=== PATIENT | female | born 1950 | race Caucasian/White ===

== ENCOUNTER 2020-09-12 11:52 | Outpatient (CLI) | payer MEDICARE, SELFPAY ==
--- NOTE | ~2020-09-12 | XR_ITS ---
EXAMINATION: XR abdomen/kub 1V DATE: 09/12/2020 12:18 INDICATION: Left ureteral stone. TECHNIQUE: A supine view of the abdomen on 2 radiographs was obtained. COMPARISON: None. FINDINGS: There are no dilated loops of bowel. There are vascular calcifications in left pelvis. The kidneys are obscured by bowel. IMPRESSION: 1. No visible urolithiasis. Reviewed, dictated and finalized at location A. [employer] IMPRESSION: 1. No visible urolithiasis.
== END 2020-09-12 11:53 | disposition home or self-care (01) ==
PROVIDERS: Visit Provider Urology
DX: N20.1 Calculus of ureter (principal)
CPT/HCPCS: 74018

== ENCOUNTER 2021-03-16 10:14 | Outpatient (CLI) | payer MEDICARE, SELFPAY ==
--- NOTE | ~2021-03-16 | XR_ITS ---
EXAMINATION: XR abdomen/kub 1V INDICATION: Left ureteral stone TECHNIQUE: Supine views of the abdomen were obtained on 2 radiographs. COMPARISON: 09/12/2020 FINDINGS: No urolithiasis is identified. The bowel gas pattern is normal. There are vascular calcific ations in the left pelvis. IMPRESSION: 1. No urolithiasis identified. Reviewed, dictated and finalized at location A.
== END 2021-03-16 10:15 | disposition home or self-care (01) ==
PROVIDERS: Visit Provider Urology
DX: N20.1 Calculus of ureter (principal)
CPT/HCPCS: 74018

== ENCOUNTER 2021-04-30 12:30 | Outpatient (CLI) | payer MEDICARE, SELFPAY ==
--- NOTE | ~2021-04-30 | NM_ITS ---
EXAMINATION: CHRISTIANO trejo renal scan DATE: 04/30/2021 14:03 INDICATION: Bilateral hydronephrosis TECHNIQUE: 8 mCi Tc-99m MAG3 was administered IV. 40 mg furosemide was administered IV immediately a fterward. The patient was scanned in the supine position. A posterior abdominal radionuclide angiogra m was obtained. A subsequent time course of static images of the kidneys, ureters, and bladder was ob tained. COMPARISON: None FINDINGS: The posterior abdominal radionuclide angiogram and sequential static images show normal size, positio n, and morphology of the kidneys. Peak renal parenchymal uptake was 2.0 min in left kidney and 0.5 mi n in right kidney (normal peak 3-5 minutes). The relative early renal uptake was 47% on the left and 53% on the right (<40% is abnormal). No abnormalities of the ureters or bladder are seen. T1/2 for clearance of activity from the left kidney and proximal collecting system was 10.5 minutes. T1/2 for clearance of activity from the right kidney and proximal collecting system was 8.0 minutes. Notes on interpretation: T1/2 <10 minutes is normal, 10-15 minutes is low grade obstruction of questi onable clinical significance, 15-20 minutes is partial obstruction that is likely clinically signific ant, >20 minutes is high grade obstruction. Note that false positives may be seen with supine positio maco, dehydration, severely dilated nonobstructed kidney, atonic collecting system, poor renal functi on, and chronic furosemide use. IMPRESSION: 1. Symmetric kidney function. 2. Borderline delayed activity clearance from the left kidney but with no evident hydronephrosis on the scintigraphic images. 2. Normal activity clearance from the right kidney Reviewed, dictated and finalized at location A. IMPRESSION: 1. Symmetric kidney function. 2. Borderline delayed activity clearance from the left kidney but with no evid ent hydronephrosis on the scintigraphic images. 2. Normal activity clearance from the right kidney
== END 2021-04-30 12:31 | disposition home or self-care (01) ==
PROVIDERS: Visit Provider Urology
DX: N13.30 Unspecified hydronephrosis (principal)
CPT/HCPCS: 78708; A9562; J1940

== ENCOUNTER 2021-10-31 08:59 | Outpatient (CLI) | payer MEDICARE, SELFPAY ==
--- NOTE | ~2021-10-31 | XR_ITS ---
XR abdomen/kub 1V 10/31/2021 09:20 Indication: Bilateral hydronephrosis Procedure: KUB Comparison: 03/16/2021 Findings: Bowel gas pattern is nonobstructive. No renal stones are identified. Mild lumbar spondylosi s. No acute osseous abnormality. Impression: 1: No acute abdominal abnormality. Reviewed, dictated and finalized at location A. BOSS Impression: 1: No acute abdominal abnormality.
== END 2021-10-31 09:00 | disposition home or self-care (01) ==
PROVIDERS: Visit Provider Urology
DX: N13.30 Unspecified hydronephrosis (principal)
CPT/HCPCS: 74018

== ENCOUNTER 2021-12-12 01:47 | Day surgery (SDC) | payer MEDICARE, SELFPAY ==
[2021-11-29 13:37] VITALS: BMI 39.5
--- NOTE | 2021-12-11 17:03 | PM.HPGS ---
History of Present Illness History of Present Illness Consent: Risks, benefits, and alternatives have been discussed and questions answered. Patient agrees to proceed with procedure. Chief complaint: hx of colon polyps Narrative: Isa Marinelli is a 71 year old female with a history of polyps, Referred for colon cancer screening. 15 years ago she had removal of a villoglandular polyp. Review of Systems Review of Systems: All systems reviewed & are unremarkable except as noted in HPI and below PMFSH Social History Social History Living arrangements: with family Meds Home Medications and Allergies Home Medications Medication Instructions Recorded Confirmed Type empagliflozin [Jardiance] 25 mg PO DAILY 11/29/21 12/12/21 History glipizide 10 mg PO DAILY 11/29/21 12/12/21 History liraglutide [Victoza 3-Jose Manuel] 1.2 mg SUBCUT DAILY 11/29/21 12/12/21 History lisinopril 10 mg PO DAILY 11/29/21 12/12/21 History metformin 1,000 mg PO BID 11/29/21 12/12/21 History pioglitazone 30 mg PO DAILY 11/29/21 12/12/21 History Allergies Allergy/AdvReac Type Severity Reaction Status Date / Time No Known Allergies Allergy Verified 12/12/21 06:14 Exam Const: General: alert Orientation/consciousness: patient oriented x3 Resp: Auscultation: clear to auscultation bilaterally Cardio: Rhythm: regular rhythm GI: GI Palp: Yes Soft to palpation and No Tenderness to palpation present (GI) Neuro: General: patient oriented x3 Assessment and Plan Assessment and plan (1) Colon cancer screening: Code(s): Z12.11 - Encounter for screening for malignant neoplasm of colon Status: Acute Assessment and Plan: Colonoscopy with possible biopsy or polypectomy or cautery or injection of substances.
[2021-12-12 06:16] VITALS: BMI 32.4
[2021-12-12 06:26] VITALS: BP 157/61; PULSE 83; RESP 18; TEMP 36.3; O2SAT 100
[2021-12-12] MEDS: LACTATED RINGERS 1,000 ML 150 ML IV CONT (06:28)
[2021-12-12 06:32] LABS: Glucose Point of Care 148 mg/dl (65-105)
--- NOTE | 2021-12-12 07:15 | P.PNAN_ITS ---
Anes - Initial Pre Proc Eval Procedure: Operation Date: 12/12/21 07:30 Proposed Procedures p Screening Colonoscopy - Immanuel Andrew MD Date/Time: 12/12/21 07:15 Surgeon: Immanuel Andrew MD Pre Op Diagnosis: hx of colon polyps Patient Data Age: 71 Gender: F Height: 1.73 m Weight: 96.9 kg Last Vital Signs Temp 36.3 C L 12/12/21 06:26 Pulse 83 12/12/21 06:26 Resp 18 12/12/21 06:26 BP 157/61 H 12/12/21 06:26 Pulse Ox 100 12/12/21 06:26 Allergies Allergy/AdvReac Type Severity Reaction Status Date / Time No Known Allergies Allergy Verified 12/12/21 06:14 Home Medications Medication Instructions Recorded Confirmed Type empagliflozin [Jardiance] 25 mg PO DAILY 11/29/21 12/12/21 History glipizide 10 mg PO DAILY 11/29/21 12/12/21 History liraglutide [Victoza 3-Jose Manuel] 1.2 mg SUBCUT DAILY 11/29/21 12/12/21 History lisinopril 10 mg PO DAILY 11/29/21 12/12/21 History metformin 1,000 mg PO BID 11/29/21 12/12/21 History pioglitazone 30 mg PO DAILY 11/29/21 12/12/21 History Laboratory Tests 12/12/21 06:30 POC Capillary Glucose 148 mg/dl H mg/dl (65-105) Patient hx anesthesia problems: none Family hx anesthesia problems: post op nausea/vomiting Results Review: All pre-operative results and documents have been reviewed as part of the pre-operative evaluation. [facility] Past Medical History Medical History Diabetes Social History Social History Living arrangements: with family Anes - Eval Final PreProcedure Day of Procedure 12/12/21 07:15 Patient weight: overweight Heart: regular rate and rhythm Lungs: clear to auscultation Airway: Mallampati scale class 1 Neurological: alert and oriented Last oral intake: >/= 8 hours ASA classification: II Emergent: no Anesthetic plan: proceed Anesthesia type and monitoring: general GIVS and standard monitoring Results Review: All pre-operative results and documents have been reviewed as part of the pre-operative evaluation. Informed Consent: The patient's anesthetic plan and its attendant risks and benefits were discussed with the patient/family/POA. Questions were solicited and answers provided to the satisfaction of the patient/family/POA.
[2021-12-12 07:48] VITALS: BP 108/59; PULSE 73; RESP 22; O2SAT 100
[2021-12-12 07:58] VITALS: BP 110/65; PULSE 83; RESP 22; O2SAT 100
[2021-12-12 08:08] VITALS: BP 122/69; PULSE 69; RESP 20; O2SAT 98
== END 2021-12-12 08:20 | disposition home or self-care (01) ==
PROVIDERS: Visit Provider Internal Medicine Gastroenterology
PROC: 0DJD8ZZ Inspection of Lower Intestinal Tract, Via Natural or Artificial Opening Endoscopic (ICD-10-PCS; CPT 45378; principal; 2021-12-12 07:30)
DX: Z12.11 Encounter for screening for malignant neoplasm of colon (principal); K57.30 Diverticulosis of large intestine without perforation or abscess without bleeding; Z86.010 Personal history of colon polyps; E11.9 Type 2 diabetes mellitus without complications; Z79.84 Long term (current) use of oral hypoglycemic drugs
CPT/HCPCS: G0105; 82948; J2704; J7120